=== PATIENT | female | born 1995 | race Caucasian/White ===

== ENCOUNTER 2023-09-06 23:33 | Emergency (ER) | payer MEDICAID ==
[~2023-09-06] VITALS: Ht 165.1 cm; Wt 51.0 kg
[2023-09-07 00:07] VITALS: BP 143/89; O2SAT 100
[2023-09-07] MEDS ORDERED: OFLO5DRO4 RIGHT EAR (01:56)
[2023-09-07] MEDS ORDERED: NAPR-1176 MT (01:56)
[2023-09-07 02:23] VITALS: PULSE 77; RESP 20; TEMP 98.7
[2023-09-07] MEDS ORDERED: AMOX-494 MT (08:28)
[2023-09-08] MEDS ORDERED: AM250 MT (10:58)
== END 2023-09-07 02:43 | disposition home or self-care (01) ==
LOC: ER 23:33
DX: H92.01 Otalgia, right ear (principal); J02.0 Streptococcal pharyngitis
CPT/HCPCS: 99283; 81025; 87430; Z7610

== ENCOUNTER 2023-09-07 07:51 | Emergency (ER) | payer MEDICAID ==
[~2023-09-07] VITALS: Ht 165.1 cm; Wt 51.0 kg
[~2023-09-07 07:51] MED LIST: NAPR-1176 MT; OFLO5DRO4 RIGHT EAR
[2023-09-07 08:00] VITALS: O2SAT 96
[2023-09-07] MEDS ORDERED: AMOX-494 MT (08:28)
[2023-09-07 09:40] VITALS: BP 112/67; PULSE 78; RESP 16; TEMP 98.5
[2023-09-08] MEDS ORDERED: AM250 MT (10:58)
== END 2023-09-07 09:41 | disposition home or self-care (01) ==
LOC: ER 07:51
DX: J02.0 Streptococcal pharyngitis (principal); H66.91 Otitis media, unspecified, right ear; E78.00 Pure hypercholesterolemia, unspecified
CPT/HCPCS: 99281; 99283